=== PATIENT | female | born 1945 | race Caucasian/White ===

== ENCOUNTER 2016-09-26 18:50 | Emergency (ER) | payer OTHER ==
[~2016-09-26] VITALS: Ht 154.9 cm; Wt 61.0 kg
[~2016-09-26 18:50] MED LIST: CALCCHW25 PO; CEPH500C3 PO; DORZ2SOL3 EACH EYE; FISH1000 PO; LATA0.00 EACH EYE; META0.52 PO; NEUR400C PO; NORV5TAB PO; PRAV40TA2 PO; PREM0.3T2 PO; SYNT25TA PO
[2016-09-26 19:01] VITALS: BP 160/93; PULSE 92; RESP 18; TEMP 99; O2SAT 99
[2016-09-26] MEDS ORDERED: META48.53 PO (19:18)
[2016-09-26] MEDS ORDERED: PREM0.3T2 PO ×2 (19:18)
[2016-09-26] MEDS ORDERED: LATA0.002 EACH EYE (19:18)
[2016-09-26] MEDS ORDERED: PRAV40TA2 PO (19:18)
[2016-09-26] MEDS ORDERED: LEVO.05 PO (19:18)
[2016-09-26] MEDS ORDERED: AMLO5TAB2 PO (19:18)
[2016-09-26] MEDS ORDERED: CALCTAB23 PO (19:18)
[2016-09-26] MEDS ORDERED: DORZ1SOL2 EACH EYE (19:18)
[2016-09-26] MEDS ORDERED: GABA400C5 PO (19:18)
[2016-09-26] MEDS ORDERED: OMEGCAP PO (19:18)
[2016-09-26] MEDS ORDERED: ACETAMINOPHEN 325 MG TAB PO ONE (20:00)
[2016-09-26 20:01] LABS: BLOOD, URINE LARGE (NEG); GLUCOSE,URINE NEG (NEG); KETONE, URINE NEG (NEG); NITRITE,URINE NEG (NEG)
[2016-09-26 20:08] LABS: URINE COLOR YELLOW (YELLW/STRAW)
[2016-09-26 20:09] LABS: BACTERIA, URINE FEW /hpf
[2016-09-26 20:10] LABS: COMMENT (UR) CULTURE INDICATED; CULTURE IF INDICATED CULTURE INDICATED; SQUAMOUS EPITHELIAL CELL URINE 0-5 /hpf (0-5); WBC, URINE 100-200 /hpf (0-5)
--- NOTE | 2016-09-26 20:16 | PD ---
HPI Chief Complaint: Complaint Time Seen by Provider: 19:45 Travel History International Travel<30 days: No Contact w/Intl Traveler<30days: No Traveled to known affect area: No History of Present Illness HPI Patient 71-year-old female with history of high blood pressure and hypothyroidism presents emergency department for evaluation of suprapubic pain and urinary frequency. Patient states that the urge to urinate and urinary frequency started last night and this morning became some cramping and gnawing pain. Patient states she's also had a mild headache associated with this but thinks this is secondary to not eating before coming to the emergent department. She states the headache is very mild. Denies any vaginal bleeding vaginal discharge nausea vomiting diarrhea or constipation. States symptoms been gradually worsening. Symptoms are moderate. PFSH Past Medical History High Cholesterol: Yes Diabetes: No Diminished Hearing: No Glaucoma: Yes Hypertension: Yes Migraines: Yes Shingles: Yes Thyroid Disease: Yes (hypo) Influenza Vaccination: Yes ?: Not Menopausal: Yes : 4 Para: 4 Tubal Ligation: Yes Past Surgical History Cholecystectomy: Yes Tonsillectomy: Yes Other Surgery: Yes (LEFT LEG VEIN STRIPPING) Social History Alcohol Use: No Tobacco Use: No Substance Use: No Allergies-Medications (Allergen,Severity, Reaction): Coded Allergies: Sulfa (Verified Allergy, Severe, UNKNOWN, 09/26/16) JV Inhibitors (Verified Adverse Reaction, Intermediate, COUGH, 09/26/16) Naproxen (Verified Adverse Reaction, Intermediate, SEVERE STOMACH UPSET, ) Prednisone (Verified Adverse Reaction, Intermediate, HEADACHE, 09/26/16) Reported Meds & Prescriptions Reported Meds & Active Scripts Active Keflex (Cephalexin) 500 Mg Cap 500 Mg PO Q6H 7 Days Reported Prempro Blister Pack (Estrogens Conj/Medroxyprogest Acet) 0.3-1.5 Mg Tab 1 Tab PO EVERY OTHER DAY Calcium 500 + D (Calcium Carbonate-Vitamin D) 500-125 Mg-Unit Tab 1 Tab PO BID Cosopt Opth Drops (Dorzolamide-Timolol Opth Drops) 22.3-6.8 Mg/Ml Soln 1 Drop EACH EYE BID Gabapentin 400 Mg Cap 500 Cap PO HS Latanoprost Opth Drops (Latanoprost) 0.005% Drops 1 Drop EACH EYE HS Refrigerate until opened. Synthroid (Levothyroxine Sodium) 50 Mcg Tab 50 Mcg PO DAILY Amlodipine (Amlodipine Besylate) 5 Mg Tab 5 Mg PO DAILY Paron-3 Fish Oil/Vitamin (Fish Oil-Cholecalciferol) 1,000-1,000 Mg Cap 1 Cap PO HS Pravastatin 40 Mg Tab 40 Mg PO HS Metamucil Original Texture (Psyllium Hydrophilic Mucilloid) 48.57 % Pow 1 Scoop PO BID PRN 1 rounded TE[place] in 8 oz of liquid at the first sign of irregularity. Prempro (Estrogens Conj/Medroxyprogest Acet) 0.3 Mg/1.5 Mg Tab 1 Tab PO EVERY OTHER DAY Review of Systems Except as stated in HPI: all other systems reviewed are Neg Physical Exam Narrative GENERAL: Well-developed well-nourished no apparent distress SKIN: Focused skin assessment warm/dry. HEAD: Atraumatic. Normocephalic. EYES: Pupils equal and round. No scleral icterus. No injection or drainage. ENT: No nasal bleeding or discharge. Mucous membranes pink and moist. NECK: Trachea midline. No JVD. CARDIOVASCULAR: Regular rate and rhythm. No murmur appreciated. RESPIRATORY: No accessory muscle use. Clear to auscultation. Breath sounds equal bilaterally. GASTROINTESTINAL: Abdomen soft, non-tender, nondistended. Hepatic and splenic margins not palpable. MUSCULOSKELETAL: No obvious deformities. No clubbing. No cyanosis. No edema. NEUROLOGICAL: Awake and alert. No obvious cranial nerve deficits. Motor grossly within normal limits. Normal speech. PSYCHIATRIC: Appropriate mood and affect; insight and judgment normal. Data Data Last Documented VS Vital Signs Date Time Temp Pulse Resp B/P Pulse Ox O2 Delivery O2 Flow Rate FiO2 09/26/16 19:01 99.0 92 18 160/93 99 Orders Urinalysis - C+S If Indicated (09/26/16 19:36) Acetaminophen (Tylenol) (09/26/16 20:00) Urine Culture (09/26/16 19:25) Cephalexin (Keflex) (09/26/16 20:45) Labs Laboratory Tests Test 09/26/16 19:25 Urine Color YELLOW Urine Turbidity SLIGHT Urine pH 6.0 Urine Specific [place] 1.004 Urine Protein NEG mg/dL Urine Glucose (UA) NEG mg/dL Urine Ketones NEG mg/dL Urine Occult Blood LARGE Urine Nitrite NEG Urine Bilirubin NEG Urine Leukocyte Esterase LARGE Urine RBC 4-9 /hpf Urine WBC 100-200 /hpf Urine Squamous Epithelial 0-5 /hpf Cells Urine Bacteria FEW /hpf Microscopic Urinalysis Comment CULTURE INDICATED MDM Medical Decision Making Medical Screen Exam Complete: Yes Emergency Medical Condition: Yes Differential Diagnosis Urinary tract infection, cystitis, pyonephritis unlikely, sepsis excluded clinically. Narrative Course Patient roomed in the emergency department, highly suspect cystitis. Urinalysis confirms diagnosis. Discussed with the patient symptomatic management returned ED criteria. Discussed antibiotic regimen and follow-up the primary care physician. No indication further workup at this time. Diagnosis Primary Impression: Pelvic pain Additional Impression: Urinary tract infection Qualified Code: N30.00 - Acute cystitis without hematuria Med/Other Pt SpecificInfo: Prescription(s) given Scripts Cephalexin (Keflex)500 Mg [id number] Mg PO Q6H 7 Days Ref 0 Prov:Dangelo Linton MD 09/26/16 Disposition: 01 DISCHARGE HOME Condition: Stable Dangelo Linton MD September 26, 2016 20:16
[2016-09-26] MEDS ORDERED: CEPH-460 PO (20:30)
[2016-09-26] MEDS ORDERED: CEPHALEXIN MONOHYDRATE 500 MG CAP PO ONE (20:45)
== END 2016-09-26 20:52 | disposition home or self-care (01) ==
LOC: PHED 18:50
DX: N39.0 Urinary tract infection, site not specified (principal); R10.2 Pelvic and perineal pain; R51 Headache; E78.00 Pure hypercholesterolemia, unspecified; I10 Essential (primary) hypertension; E03.9 Hypothyroidism, unspecified; Z79.899 Other long term (current) drug therapy; Z88.2 Allergy status to sulfonamides; Z88.8 Allergy status to other drugs, medicaments and biological substances
CPT/HCPCS: 81001; 87077; 87086; 87186; 99284